=== PATIENT | female | born 1945 | race Caucasian/White ===

== ENCOUNTER 2022-04-09 11:41 | Emergency (ER) | payer OTHER ==
[~2022-04-09] VITALS: Ht 144.8 cm; Wt 72.6 kg
[2022-04-09] MEDS ORDERED: METFORMIN HCL850 M1 PO (11:47)
[2022-04-09] MEDS ORDERED: METOPROLOL SUCC25 MG PO (11:48)
[2022-04-09] MEDS ORDERED: LISINOPRIL40 MG PO (11:48)
== END 2022-04-09 16:41 | disposition home or self-care (01) ==
LOC: ER 11:41
DX: R42 Dizziness and giddiness (principal)